=== PATIENT | female | born 2000 | race Caucasian/White ===

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

== ENCOUNTER 2022-11-13 23:43 | Emergency (ER) | payer BC ==
[~2022-11-13] VITALS: Ht 162.5 cm; Wt 61.2 kg
[2022-11-13] MEDS ORDERED: USTE90DI (23:57)
[2022-11-13] MEDS ORDERED: NORE1PAT10 (23:57)
[2022-11-14 00:14] LABS: BILIRUBIN,URINE NEGATIVE (NEGATIVE); CLARITY,URINE SL CLOUDY; COLOR,URINE YELLOW; GLUCOSE, URINE (UA) NEGATIVE (NEGATIVE); KETONES,URINE NEGATIVE (NEGATIVE); LEUKOCYTE ESTERASE ,URINE NEGATIVE (NEGATIVE); NITRITE,URINE NEGATIVE (NEGATIVE); PROTEIN,URINE NEGATIVE (NEGATIVE)
[2022-11-14] MEDS ORDERED: KETOROLAC 15 MG/ML VIAL IVP ONE (00:15)
[2022-11-14 00:20] LABS: BASOPHILS # (AUTO) 0.1 10^3/uL (0.0-0.1); BASOPHILS % (AUTO) 1 % (0-10); EOSINOPHILS # (AUTO) 0.7 10^3/uL (0.0-0.3); EOSINOPHILS % (AUTO) 7 % (0-10); HEMATOCRIT 41 % (35-52); HEMOGLOBIN 13.8 g/dL (11.5-16.0); LYMPHOCYTES # (AUTO) 4.5 10^3/uL (1.0-4.0); LYMPHOCYTES % (AUTO) 50 % (12-44); MEAN CORPUSCULAR HEMOGLOBIN 29 pg (25-34); MEAN CORPUSCULAR HGB CONC 34 g/dL (32-36); MEAN CORPUSCULAR VOLUME 85 fL (80-99); MONOCYTES # (AUTO) 0.6 10^3/uL (0.0-1.0); MONOCYTES % (AUTO) 7 % (0-12); NEUTROPHILS # (AUTO) 3.2 10^3/uL (1.8-7.8); NEUTROPHILS % (AUTO) 35 % (42-75); PLATELET COUNT 398 10^3/uL (130-400); WHITE BLOOD COUNT 9.1 10^3/uL (4.3-11.0)
[2022-11-14 00:21] LABS: AMORPHOUS SEDIMENT,UR FEW AMOR PHOSPHATE /LPF; BACTERIA,URINE TRACE /HPF; WBC,URINE 0-2 /HPF
--- NOTE | 2022-11-14 00:28 | ED Abdominal Pain ---
General Chief Complaint: Abdominal/GI Problems Stated Complaint: LOWER RT ABD PX Nursing Triage Note: C/O CONSTANT RIGHT LOWER ABDOMINAL PAIN VARYING IN INTENSITY X2.5 MONTHS, WORSE X2 DAYS. Source of Information: Patient Exam Limitations: No Limitations History of Present Illness Date Seen by Provider: Nov 14, 2022 Time Seen by Provider: 00:08 Initial Comments 22-year-old female with history of Crohn's disease presents to the emergency department today for right lower abdominal pain. Symptoms off and on for the last 2 months progressively worsening. She saw gynecology thinking maybe related to her ovary. They did not do imaging. I believe this is likely from the ovary, probably likely was musculoskeletal per patient's report. She did stop taking control 2 weeks ago but states they have not had intercourse since that time. No vaginal discharge odor or bleeding. No changes in her bowels but she does have some irregularity here with Crohn's disease. No urinary symptoms. Pain is dull throbbing without radiation in the right lower abdomen, pelvic region. No aggravating or alleviating factors. No associated symptoms. She tried percocet that she had from previous wisdom tooth removal without any relief. Allergies and Home Medications Allergies Coded Allergies: triamcinolone (Verified Allergy, Unknown, 11/13/22) aspirin (Verified Adverse Reaction, Unknown, 11/13/22) ibuprofen (Verified Adverse Reaction, Unknown, 11/13/22) Uncoded Allergies: STEROIDS (Allergy, Severe, HAD PERIOD FOR 2YRS/ELEVATED BS, 08/19/18) Patient Home Medication List Home Medication List Reviewed: Yes Cephalexin (Cephalexin) 500 Mg Tablet, 500 MG PO TID, (Reported) Entered as Reported by: ENID BIGGS on 06/10/21 1216 Cetirizine HCl (Cetirizine HCl) 10 Mg Tablet, 10 MG PO DAILY, (Reported) Entered as Reported by: ROMELIA COLVIN on 08/19/18 0910 Minocycline HCl (Minocycline HCl) 100 Mg Capsule, 100 MG PO BIDPC, (Reported) Entered as Reported by: ROMELIA COLVIN on 08/19/18 0910 Norelgestromin/Ethin.estradiol (Zafemy 150-35 Mcg/Day Patch) 150 Mcg-35 Mcg/24 Hour Patch.tdwk, (Reported) Entered as Reported by: ISIAH SHEPPARD on 11/13/222356 Last Action: New Order Ustekinumab (Stelara) 90 Mg/Ml Syringe, (Reported) Entered as Reported by: ISIAH SHEPPARD on 11/13/222356 Last Action: New Order Review of Systems Review of Systems Constitutional: no symptoms reported EENTM: No Symptoms Reported Respiratory: No Symptoms Reported Cardiovascular: No Symptoms Reported Gastrointestinal: Abdominal Pain Genitourinary: No Symptoms Reported Musculoskeletal: no symptoms reported Skin: no symptoms reported Psychiatric/Neurological: No Symptoms Reported Endocrine: No Symptoms Reported Hematologic/Lymphatic: No Symptoms Reported Past Sdyzlyh-Lbrgya-Clxatc Hx Patient Social History Tobacco Use?: No Substance use?: No Alcohol Use?: No Pt feels they are or have been: No Immunizations Up To Date Tetanus Booster (TDap): Unknown PED Vaccines UTD: Yes First/Initial COVID19 Vaccinat: MAY 2021 Second COVID19 Vaccination Radu: JUN 2021 Third COVID19 Vaccination Date: MAY 2021 COVID19 Vaccine [employer]: fitogram Seasonal Allergies Seasonal Allergies: Yes Past Medical History Surgery/Hospitalization HX: T/A, DENTAL, CHRONS, GERD, ANXIETY, CHRONIC DIARRHEA. Surgeries: Yes Adenoidectomy, Tonsillectomy Respiratory: No Currently Using CPAP: No Currently Using BIPAP: No Cardiac: No Neurological: No Last Menstrual Period: Oct 31, 2022 Reproductive Disorders: No Female Reproductive Disorders: Denies Sexually Transmitted Disease: No HIV/AIDS: No Genitourinary: No Gastrointestinal: No Gastroesophageal Reflux, Crohns Disease, Chronic Diarrhea Musculoskeletal: No Endocrine: No HEENT: No Loss of Vision: Bilateral Hearing Impairment: Denies Cancer: No Psychosocial: No Anxiety Integumentary: No Eczema Blood Disorders: No Adverse Reaction/Blood Tranf: No (N/A) Family Medical History Reviewed Nursing Family Hx No Pertinent Family Hx Physical Exam Vital Signs Vital Signs - First Documented 11/13/22 23:51 Temp 36.3 Pulse 104 Resp 18 B/P (MAP) 138/82 (100) Pulse Ox 98 O2 Delivery Room Air Capillary Refill : Less Than 3 Seconds Height/Weight/BMI Height: 5'3.00" Weight: 135lbs. 0.0oz. 61.422184bk; 23.00 BMI Method:Stated General Appearance: WD/WN, other (crying) HEENT: normal ENT inspection, pharynx normal Neck: non-tender, supple, normal inspection Respiratory: chest non-tender, lungs clear, normal breath sounds, no respirat ory distress, no accessory muscle use Cardiovascular: regular rate, rhythm, no murmur Gastrointestinal: normal bowel sounds, soft, no organomegaly, tenderness (Right lower pelvic region. No rebound or guarding. No mass organomegaly. No skin changes.) Extremities: normal range of motion, non-tender, normal inspection, normal capillary refill Neurologic/Psychiatric: alert, normal mood/affect, oriented x 3 Skin: normal color, warm/dry Progress/Results/Core Measures Results/Orders Lab Results Laboratory Tests Test 11/13/22 23:55 11/14/22 00:09 Range/Units Urine Color YELLOW Urine Clarity SL CLOUDY Urine pH 7.0 5-9 Urine Specific [place] 1.020 1.016-1.022 Urine Protein NEGATIVE NEGATIVE Urine Glucose (UA) NEGATIVE NEGATIVE Urine Ketones NEGATIVE NEGATIVE Urine Nitrite NEGATIVE NEGATIVE Urine Bilirubin NEGATIVE NEGATIVE Urine Urobilinogen 0.2 < = 1.0 MG/DL Urine Leukocyte Esterase NEGATIVE NEGATIVE Urine RBC (Auto) NEGATIVE NEGATIVE Urine RBC NONE /HPF Urine WBC 0-2 /HPF Urine Squamous Epithelial Cells 5-10 /HPF Urine Crystals PRESENT H /LPF Urine Amorphous Sediment FEW STEFFANY PHOSPHATE H /LPF Urine Bacteria TRACE /HPF Urine Casts NONE /LPF Urine Mucus NEGATIVE /LPF Urine Culture Indicated NO White Blood Count 9.1 4.3-11.0 10^3/uL Red Blood Count 4.81 3.80-5.11 10^6/uL Hemoglobin 13.8 11.5-16.0 g/dL Hematocrit 41 35-52 % Mean Corpuscular Volume 85 80-99 fL Mean Corpuscular Hemoglobin 29 25-34 pg Mean Corpuscular Hemoglobin Concent 34 32-36 g/dL Red Cell Distribution Width 12.2 10.0-14.5 % Platelet Count 398 130-400 10^3/uL Mean Platelet Volume 10.0 9.0-12.2 fL Immature Granulocyte % (Auto) 0 % Neutrophils (%) (Auto) 35 L 42-75 % Lymphocytes (%) (Auto) 50 H 12-44 % Monocytes (%) (Auto) 7 0-12 % Eosinophils (%) (Auto) 7 0-10 % Basophils (%) (Auto) 1 0-10 % Neutrophils # (Auto) 3.2 1.8-7.8 10^3/uL Lymphocytes # (Auto) 4.5 H 1.0-4.0 10^3/uL Monocytes # (Auto) 0.6 0.0-1.0 10^3/uL Eosinophils # (Auto) 0.7 H 0.0-0.3 10^3/uL Basophils # (Auto) 0.1 0.0-0.1 10^3/uL Immature Granulocyte # (Auto) 0.0 0.0-0.1 10^3/uL Sodium Level 140 135-145 MMOL/L Potassium Level 3.6 3.6-5.0 MMOL/L Chloride Level 106 98-107 MMOL/L Carbon Dioxide Level 23 21-32 MMOL/L Anion Gap 11 5-14 MMOL/L Blood Urea Nitrogen 12 7-18 MG/DL Creatinine 0.76 0.60-1.30 MG/DL Estimat Glomerular Filtration Rate 115 BUN/Creatinine Ratio 16 Glucose Level 84 70-105 MG/DL Calcium Level 9.5 8.5-10.1 MG/DL Corrected Calcium 9.6 8.5-10.1 MG/DL Total Bilirubin 0.2 0.1-1.0 MG/DL Aspartate Amino Transf (AST/SGOT) 22 5-34 U/L Alanine Aminotransferase (ALT/SGPT) 31 0-55 U/L Alkaline Phosphatase 77 40-136 U/L Total Protein 7.3 6.4-8.2 GM/DL Albumin 3.9 3.2-4.5 GM/DL Serum Test, Qualitative NEGATIVE NEGATIVE My Orders Orders - ZACKERY CH DO Hcg,Qualitative Serum (11/14/22 00:05) Comprehensive Metabolic Panel (11/14/22 00:05) Cbc With Automated Diff (11/14/22 00:05) Ua Culture If Indicated (11/14/22 00:05) Ketorolac Injection (Toradol Injection) (11/14/22 00:15) Ct Abd/Pelvis Wo(Kidney Stone) (11/14/22 00:06) Medications Given in ED Current Medications Medications Dose Ordered Sig/Carmenza Route Start Time Stop Time Status Last Admin Dose Admin Ketorolac Tromethamine 15 mg ONCE ONCE IVP 11/14/22 00:15 11/14/22 00:16 DC 11/14/22 00:13 15 MG Vital Signs/I&O 11/13/22 23:51 Temp 36.3 Pulse 104 Resp 18 B/P (MAP) 138/82 (100) Pulse Ox 98 O2 Delivery Room Air Blood Pressure Mean: 100 Departure Communication (Admissions) Patient is hemodynamically stable. Initial differential diagnosis includes appendicitis, urinary tract infection, nephro/ureterolithiasis, ovarian cyst, torsion. Highly doubt torsion based on her exam and the duration of the symptoms more than 2 months now. Urine is noninfected. CT scan is negative for any evidence of acute appendicitis. We are awaiting the official read of the CT scan the patient's came out and stated she was tired of waiting and would like to leave. Unfortunately there was a delay in the read has been using a virtual off-site radiology service overnight and has had delays recently. Advised that while I did not see anything obvious on the CT scan I am not a radiologist and could not guarantee that I was not missing something. He stated understanding and still request to leave. Her pain is essentially resolved with Toradol. Normal white blood cell count as well and given the duration this would be unlikely. Unclear what the source is but it does not appear to be from emergent medical condition at this time. Recommend follow-up with primary doctor and given strict return precautions. Impression Primary Impression: Right lower quadrant abdominal pain Disposition: 01 HOME, SELF-CARE Condition: Stable Departure-Patient Inst. Referrals: MIAH KAY DO (PCP/Family) Primary Care Physician Patient Instructions: Abdominal Pain, Adult ED Add. Discharge Instructions: You have opted not to wait for the official CT scan read, including the limited view of your pelvic organs. While i dont see anything grossly abnormal, i am not a radiologist. No obvious emergent medical condition is identified for your symptoms today. Continue to use home medications as previously recommended. Return to the emergency department for any severe concerns. All discharge instructions reviewed with patient and/or family. Voiced understanding. ZACKERY CH DO Nov 14, 2022 00:28
[2022-11-14 00:30] LABS: ALBUMIN 3.9 GM/DL (3.2-4.5)
[2022-11-14 00:31] LABS: POTASSIUM 3.6 MMOL/L (3.6-5.0)
[2022-11-14 00:32] LABS: CALCIUM 9.5 MG/DL (8.5-10.1)
[2022-11-14 00:33] LABS: TOTAL PROTEIN 7.3 GM/DL (6.4-8.2)
[2022-11-14 00:35] LABS: BILIRUBIN,TOTAL 0.2 MG/DL (0.1-1.0)
[2022-11-14 00:37] LABS: CREATININE SERUM 0.76 MG/DL (0.60-1.30)
[2022-11-14 02:39] VITALS: BP 132/86
--- NOTE | 2022-11-14 07:22 | Diagnostic Imaging Report ---
PROCEDURE: CT urinary tract, rule out kidney stone. TECHNIQUE: Multiple contiguous axial images were obtained through the abdomen and pelvis without the use of intravenous contrast. Auto Exposure Controls were utilized during the CT exam to meet ALARA standards for radiation dose reduction. INDICATION: Right-sided abdominal pain. COMPARISON: 08/23/2021. FINDINGS: The heart is unremarkable. The lung bases are clear. The liver, spleen, pancreas, adrenal glands, and kidneys have a normal noncontrast CT appearance. There is no pathologically enlarged mesenteric or retroperitoneal adenopathy. The bowel loops are nondilated. The appendix is visualized in the right lower quadrant and has a normal appearance. There is no free fluid or free air. No acute osseous abnormalities. Ureters and bladder are normal. There is no free air, loculated collection, or adenopathy in the pelvis. IMPRESSION: 1. No acute abnormalities in the abdomen and pelvis. Agree with overnight report. Dictated by: Dictated on workstation # [id number]
== END 2022-11-14 02:41 | disposition home or self-care (01) ==
LOC: EDUNIT# 23:43 → ER 23:47
DX: R10.31 Right lower quadrant pain (principal); Z87.19 Personal history of other diseases of the digestive system; Z88.6 Allergy status to analgesic agent
CPT/HCPCS: 36415; 74176; 80053; 81000; 84703; 85025; 96374

== ENCOUNTER → 2022-11-18 | Outpatient (CLI) | payer BC ==
[~2022-11-18] MED LIST changes: +NORE1PAT10; +USTE90DI
--- NOTE | 2022-11-18 14:26 | Diagnostic Imaging Report ---
PROCEDURE: Pelvic comp/transvaginal sonogram. TECHNIQUE: Complete transabdominal and transvaginal pelvic ultrasound was performed. In addition, limited pelvic Doppler was performed. INDICATION: Pelvic pain. FINDINGS: The uterus is retroverted measuring 7.1 x 3.6 x 5.1 cm. The endometrium is 5 mm in thickness. There are areas of myometrial heterogeneity on both the right and left aspect of the uterus, each area measuring 2-3 cm in size. Possible fibroids cannot be entirely excluded. The right ovary measures 3.0 x 1.6 x 1.9 cm and the left ovary measures 3.3 x 1.8 x 3.3 cm. The left ovary does contain a dominant follicle or cyst measuring approximately 22 mm x 20 mm. There is normal vascularity to both ovaries. No free fluid is detected. IMPRESSION: 1. There is some myometrial heterogeneity, uterine fibroids cannot be entirely excluded. 2. There is a 22 mm dominant follicle of the left ovary. Dictated by: Dictated on workstation # [id number]
== END ==
LOC: RAD 12:17
PROVIDERS: ATTEND Nurse Practitioner Women's Health
DX: N83.02 Follicular cyst of left ovary (principal); D25.9 Leiomyoma of uterus, unspecified
CPT/HCPCS: 76830; 76856

== ENCOUNTER → 2023-03-11 | Outpatient (CLI) | payer BC ==
--- NOTE | 2023-03-11 15:54 | Diagnostic Imaging Report ---
US SOFT TISSUE HEAD NECK [id number] INDICATION: Enlarged cervical lymph nodes COMPARISON: None available. TECHNIQUE: Multiprojectional scintigraphic imaging of the neck was performed with grayscale and color Doppler imaging. FINDINGS: Bilateral cervical lymph nodes are normal in size and morphology. All the lymph nodes are less than 1 cm short axis and have maximal long-dimensions of up to 1.2 cm. No cortical thickening. IMPRESSION: No enlarged cervical lymph nodes on either side. Multiple normal-appearing lymph nodes are present. Dictated by: Dictated on workstation # [id number]
== END ==
LOC: RAD 09:58
DX: I89.0 Lymphedema, not elsewhere classified (principal)
CPT/HCPCS: 76536

== ENCOUNTER 2023-05-29 11:54 | Emergency (ER) | payer BC ==
[~2023-05-29] VITALS: Ht 160 cm; Wt 65.8 kg
[2023-05-29] MEDS ORDERED: ONDANSETRON INJECTION 4 MG/2 ML (SDV) IVP ONE (12:15)
[2023-05-29] MEDS ORDERED: NS IV 1000 ML 1,000 ML IV SCH ×2 (12:15→15:00)
--- NOTE | 2023-05-29 12:17 | ED Cough/URI ---
General Chief Complaint: COVID19 Suspect/Confirmed Stated Complaint: SORE THROAT | IMMUNO COMPROMISED Nursing Triage Note: PT AMB TO ED BY POV WITH C/O SORE THROAT, N/V, CONGESTION. PT REPORTS CONGESTION AND BODY ACHES BEGAN A FEW DAYS AGO, SORE THROAT BEGINNING LAST YESTERDAY. PT REPORTS SHE HAS NOT BEEN ABLE TO KEEP ANYTHING DOWN OVER THE LAST FEW DAYS. Source: patient Exam Limitations: no limitations History of Present Illness Date Seen by Provider: May 29, 2023 Time Seen by Provider: 11:57 Initial Comments 22-year-old female presents to the ER with reports of vomiting for the last 18 to 24 hours, body aches and chills, sore throat, congestion, cough with green- colored phlegm. Patient has Crohn's disease, she is currently on Stelara and is immunocompromised. She denies fevers, abdominal pain, diarrhea, dysuria. Last bowel movement was yesterday and normal. Last menstrual cycle was last week. She states that last week she had walking pneumonia and was treated with doxycycline. States she felt better for approximately 4 to 5 days and then developed the symptoms. Allergies and Home Medications Allergies Coded Allergies: triamcinolone (Verified Allergy, Unknown, 11/13/22) aspirin (Verified Adverse Reaction, Unknown, 11/13/22) ibuprofen (Verified Adverse Reaction, Unknown, 11/13/22) Uncoded Allergies: STEROIDS (Allergy, Severe, HAD PERIOD FOR 2YRS/ELEVATED BS, 08/19/18) Patient Home Medication List Home Medication List Reviewed: Yes Cefdinir (Cefdinir) 300 Mg Capsule, 300 MG PO BID Prescribed by: Rissa Nam on 05/29/23 1521 Cephalexin (Cephalexin) 500 Mg Tablet, 500 MG PO TID, (Reported) Entered as Reported by: ENID BIGGS on 06/10/21 1216 Cetirizine HCl (Cetirizine HCl) 10 Mg Tablet, 10 MG PO DAILY, (Reported) Entered as Reported by: ROMELIA COLVIN on 08/19/18 0910 Minocycline HCl (Minocycline HCl) 100 Mg Capsule, 100 MG PO BIDPC, (Reported) Entered as Reported by: ROMELIA COLVIN on 08/19/18 0910 Norelgestromin/Ethin.estradiol (Zafemy 150-35 Mcg/Day Patch) 150 Mcg-35 Mcg/24 Hour Patch.tdwk, (Reported) Entered as Reported by: ISIAH SHEPPARD on 11/13/222356 Ondansetron (Ondansetron Odt) 4 Mg Tab.rapdis, 4 MG SL Q4H PRN for NAUSEA/VOMITING Prescribed by: Rissa Nam on 05/29/23 1521 Ustekinumab (Stelara) 90 Mg/Ml Syringe, (Reported) Entered as Reported by: ISIAH SHEPPARD on 11/13/222356 Review of Systems Review of Systems Constitutional: see HPI Past Tjptlej-Puuhqh-Iguntq Hx Patient Social History Tobacco Use?: No Use of E-Cig and/or Vaping dev: No Substance use?: No Alcohol Use?: No Pt feels they are or have been: No Immunizations Up To Date Tetanus Booster (TDap): Unknown PED Vaccines UTD: Yes First/Initial COVID19 Vaccinat: MAY 2021 Second COVID19 Vaccination Radu: JUN 2021 Third COVID19 Vaccination Date: MAY 2021 Seasonal Allergies Seasonal Allergies: Yes Past Medical History Surgery/Hospitalization HX: T/A, DENTAL, CHRONS, GERD, ANXIETY, CHRONIC DIARRHEA. Surgeries: Yes Adenoidectomy, Tonsillectomy Respiratory: No Currently Using CPAP: No Currently Using BIPAP: No Cardiac: No Neurological: No Reproductive Disorders: No Female Reproductive Disorders: Denies Sexually Transmitted Disease: No HIV/AIDS: No Genitourinary: No Gastrointestinal: No Gastroesophageal Reflux, Crohns Disease, Chronic Diarrhea Musculoskeletal: No Endocrine: No HEENT: No Loss of Vision: Bilateral Hearing Impairment: Denies Cancer: No Psychosocial: No Anxiety Integumentary: No Eczema Blood Disorders: No Adverse Reaction/Blood Tranf: No (N/A) Family Medical History No Pertinent Family Hx Physical Exam Vital Signs - First Documented 05/29/23 12:00 Temp 36.5 Pulse 115 Resp 18 B/P (MAP) 122/86 (98) Pulse Ox 98 O2 Delivery Room Air Capillary Refill : Less Than 3 Seconds Height: 5'3.00" Weight: 135lbs. 0.0oz. 61.652135jd; 25.00 BMI Method:Stated General Appearance: WD/WN, mild distress Neck: supple, normal inspection Respiratory: lungs clear, normal breath sounds, no respiratory distress, no accessory muscle use Cardiovascular: tachycardia Extremities: normal range of motion, normal inspection Neurologic/Psychiatric: alert, normal mood/affect Skin: normal color, warm/dry Focused Exam Lactate Level 05/29/23 12:24: Lactic Acid Level 0.97 Lactic Acid Level Laboratory Tests Test 05/29/23 12:24 Lactic Acid Level 0.97 MMOL/L (0.50-2.00) Progress/Results/Core Measures Suspected Sepsis SIRS Temperature: Pulse: 115 Respiratory Rate: 18 Laboratory Tests 05/29/23 12:24: White Blood Count 19.4H Blood Pressure 122 /86 Mean: 98 05/29/23 12:24: Lactic Acid Level 0.97 Laboratory Tests 05/29/23 12:24: Creatinine 0.83, Platelet Count 408H, Total Bilirubin 0.6 Results/Orders Lab Results Laboratory Tests Test 05/29/23 12:24 05/29/23 13:05 05/29/23 13:50 Range/Units White Blood Count 19.4 H 4.3-11.0 10^3/uL Red Blood Count 4.67 3.80-5.11 10^6/uL Hemoglobin 13.3 11.5-16.0 g/dL Hematocrit 39 35-52 % Mean Corpuscular Volume 84 80-99 fL Mean Corpuscular Hemoglobin 29 25-34 pg Mean Corpuscular Hemoglobin Concent 34 32-36 g/dL Red Cell Distribution Width 12.4 10.0-14.5 % Platelet Count 408 H 130-400 10^3/uL Mean Platelet Volume 9.9 9.0-12.2 fL Immature Granulocyte % (Auto) 0 % Neutrophils (%) (Auto) 85 H 42-75 % Lymphocytes (%) (Auto) 8 L 12-44 % Monocytes (%) (Auto) 4 0-12 % Eosinophils (%) (Auto) 2 0-10 % Basophils (%) (Auto) 0 0-10 % Neutrophils # (Auto) 16.6 H 1.8-7.8 10^3/uL Lymphocytes # (Auto) 1.6 1.0-4.0 10^3/uL Monocytes # (Auto) 0.7 0.0-1.0 10^3/uL Eosinophils # (Auto) 0.4 H 0.0-0.3 10^3/uL Basophils # (Auto) 0.1 0.0-0.1 10^3/uL Immature Granulocyte # (Auto) 0.1 0.0-0.1 10^3/uL Neutrophils % (Manual) 80 % Lymphocytes % (Manual) 13 % Monocytes % (Manual) 4 % Eosinophils % (Manual) 3 % Blood Morphology Comment NORMAL Sodium Level 137 135-145 MMOL/L Potassium Level 3.7 3.6-5.0 MMOL/L Chloride Level 103 98-107 MMOL/L Carbon Dioxide Level 23 21-32 MMOL/L Anion Gap 11 5-14 MMOL/L Blood Urea Nitrogen 10 7-18 MG/DL Creatinine 0.83 0.60-1.30 MG/DL Estimat Glomerular Filtration Rate 103 BUN/Creatinine Ratio 12 Glucose Level 85 70-105 MG/DL Lactic Acid Level 0.97 0.50-2.00 MMOL/L Calcium Level 9.4 8.5-10.1 MG/DL Corrected Calcium 9.6 8.5-10.1 MG/DL Total Bilirubin 0.6 0.1-1.0 MG/DL Aspartate Amino Transf (AST/SGOT) 15 5-34 U/L Alanine Aminotransferase (ALT/SGPT) 14 0-55 U/L Alkaline Phosphatase 76 40-136 U/L Total Protein 7.6 6.4-8.2 GM/DL Albumin 3.8 3.2-4.5 GM/DL Influenza Type A (RT-PCR) Not Detected Not Detecte Influenza Type B (RT-PCR) Not Detected Not Detecte SARS-CoV-2 RNA (RT-PCR) Not Detected Not Detecte Group A Streptococcus Screen NEGATIVE NEGATIVE Urine Color YELLOW Urine Clarity CLOUDY H Urine pH 5.5 5-9 Urine Specific [place] >=1.030 1.016-1.022 Urine Protein 2+ H NEGATIVE Urine Glucose (UA) NEGATIVE NEGATIVE Urine Ketones 3+ H NEGATIVE Urine Nitrite NEGATIVE NEGATIVE Urine Bilirubin 2+ H NEGATIVE Urine Urobilinogen 1.0 < = 1.0 MG/DL Urine Leukocyte Esterase TRACE H NEGATIVE Urine RBC (Auto) NEGATIVE NEGATIVE Urine RBC 0-2 /HPF Urine WBC 5-10 H /HPF Urine Squamous Epithelial Cells >50 H /HPF Urine Crystals PRESENT H /LPF Urine Amorphous Sediment RARE STEFFANY URATES H /LPF Urine Bacteria FEW H /HPF Urine Casts NONE /LPF Urine Mucus LARGE H /LPF Urine Culture Indicated YES My Orders Orders - RISSA FRANKLIN APRN Comprehensive Metabolic Panel (05/29/23 12:08) Ua Culture If Indicated (05/29/23 12:08) Urine Bedside (05/29/23 12:08) Ed Iv/Invasive Line Start (05/29/23 12:08) Cbc With Automated Diff (05/29/23 12:08) Covid 19 Inhouse Test (05/29/23 12:08) Influenza A And B By Pcr (05/29/23 12:08) Rapid Strep A Screen (05/29/23 12:08) Ns Iv 1000 Ml (Ns Iv 1000 Ml) (05/29/23 12:15) Ondansetron Injection (Ondansetron Inj (05/29/23 12:15) Chest 1 View, Ap/Pa Only (05/29/23 12:11) Lactic Acid Analyzer (05/29/23 12:11) Ketorolac Injection (Ketorolac Injection (05/29/23 12:30) Manual Differential (05/29/23 12:24) Throat Culture Strep A Confirm (05/29/23 13:05) Urine Culture (05/29/23 13:50) Ns Iv 1000 Ml (Ns Iv 1000 Ml) (05/29/23 15:00) Medications Given in ED Current Medications Medications Dose Ordered Sig/Carmenza Route Start Time Stop Time Status Last Admin Dose Admin Ketorolac Tromethamine 15 mg ONCE ONCE IVP 05/29/23 12:30 05/29/23 12:31 DC 05/29/23 12:25 15 MG Ondansetron HCl 4 mg ONCE ONCE IVP 05/29/23 12:15 05/29/23 12:16 DC 05/29/23 12:25 4 MG Vital Signs/I&O 05/29/23 05/29/23 12:00 15:52 Temp 36.5 36.5 Pulse 115 100 Resp 18 18 B/P (MAP) 122/86 (98) 117/64 Pulse Ox 98 96 O2 Delivery Room Air Room Air Capillary Refill : Less Than 3 Seconds Blood Pressure Mean: 98 Progress Note : Progress Note Patient seen and evaluated, sitting in bed, mild distress. Based on exam and symptoms, work-up initiated including CBC, CMP, lactic acid, UA, urine , COVID, flu, strep, chest x-ray. IV fluids, Zofran ordered. 1446 Labs and x-ray reviewed. CBC shows elevated WBC 19.4, elevated neutrophil percentage 85. CMP grossly normal. Lactic acid normal. Urinalysis shows 3+ ketones, 2+ bilirubin, 5-10 WBCs, greater than 50 squamous epithelial cells, few bacteria. Specimen is contaminated. COVID, flu, strep negative. Chest x-ray shows no acute cardiopulmonary process. Second liter of IV fluids ordered. Results discussed with patient. Symptoms are likely from a viral upper respiratory tract infection, but will treat with cefdinir due to elevated white count and patient being immunocompromised. Elevated white count could also be from vomiting. Results discussed with patient. Will discharge after IV fluids. Discharge instructions and return precautions provided. Diagnostic Imaging Diagonstic Imaging: Xray Plain Films/CT/US/NM/MRI: chest Comments [facility] [place], [place] NAME: ZE PETERSON [facility] REC#: [id number] PT STATUS: REG ER : 2000 PHYSICIAN: RISSA FRANKLIN APRN ADMIT DATE: 05/29/23/ER Signed Date of Exam:05/29/23 CHEST 1 VIEW, AP/PA ONLY EXAMINATION: Chest, one view. HISTORY: Cough and congestion, recent pneumonia. COMPARISON: None available. FINDINGS: The lungs are clear without edema or pneumonia. No pleural effusion or pneumothorax. Heart size is normal. IMPRESSION: 1. Clear lungs. Dictated by: Dictated on workstation # [id number] Dict: 05/29/23 1327 Trans: 05/29/23 1331 [id number] Interpreted by: VELMA MAHER MD Electronically signed by: VELMA MAHER MD 05/29/23 1331 Departure Impression Primary Impression: Upper respiratory infection Additional Impression: Vomiting Disposition: 01 HOME, SELF-CARE Condition: Stable Departure-Patient Inst. Decision time for Depature: 15:45 Referrals: MIAH KAY DO (PCP/Family) Primary Care Physician Patient Instructions: Upper Respiratory Infection ED Add. Discharge Instructions: Complete full course of antibiotic as directed. Take Zofran as needed for nausea vomiting. You may take 1000 mg of Tylenol every 8 hours as needed for pain. Follow-up with your primary care provider if you are not improving. Return for recurrent vomiting, or any other new, concerning, or worsening symptoms. All discharge instructions reviewed with patient and/or family. Voiced understanding. Scripts Ondansetron (Ondansetron Odt) 4 Mg Tab.rapdis 4 MG SL Q4H PRN for NAUSEA/VOMITING, #20 TAB Prov: RISSA FRANKLIN APRN 05/29/23 Cefdinir (Cefdinir) 300 Mg Capsule 300 MG PO BID for 7 Days, #14 CAP Prov: RISSA FRANKLIN APRN 05/29/23 RISSA FRANKLIN APRN May 29, 2023 12:17
[2023-05-29] MEDS ORDERED: KETOROLAC INJ 15 MG/ML VIAL IVP ONE (12:30)
[2023-05-29 12:34] LABS: BASOPHILS # (AUTO) 0.1 10^3/uL (0.0-0.1); BASOPHILS % (AUTO) 0 % (0-10); EOSINOPHILS # (AUTO) 0.4 10^3/uL (0.0-0.3); EOSINOPHILS % (AUTO) 2 % (0-10); HEMATOCRIT 39 % (35-52); HEMOGLOBIN 13.3 g/dL (11.5-16.0); LYMPHOCYTES # (AUTO) 1.6 10^3/uL (1.0-4.0); LYMPHOCYTES % (AUTO) 8 % (12-44); MEAN CORPUSCULAR HEMOGLOBIN 29 pg (25-34); MEAN CORPUSCULAR HGB CONC 34 g/dL (32-36); MEAN CORPUSCULAR VOLUME 84 fL (80-99); MEAN PLATELET VOLUME 9.9 fL (9.0-12.2); MONOCYTES # (AUTO) 0.7 10^3/uL (0.0-1.0); MONOCYTES % (AUTO) 4 % (0-12); NEUTROPHILS # (AUTO) 16.6 10^3/uL (1.8-7.8); NEUTROPHILS % (AUTO) 85 % (42-75); PLATELET COUNT 408 10^3/uL (130-400); WHITE BLOOD COUNT 19.4 10^3/uL (4.3-11.0)
[2023-05-29 12:44] LABS: ALBUMIN 3.8 GM/DL (3.2-4.5); POTASSIUM 3.7 MMOL/L (3.6-5.0)
[2023-05-29 12:45] LABS: CALCIUM 9.4 MG/DL (8.5-10.1)
[2023-05-29 12:46] LABS: TOTAL PROTEIN 7.6 GM/DL (6.4-8.2)
[2023-05-29 12:48] LABS: BILIRUBIN,TOTAL 0.6 MG/DL (0.1-1.0)
[2023-05-29 12:50] LABS: CREATININE SERUM 0.83 MG/DL (0.60-1.30)
[2023-05-29 12:54] LABS: EOSINOPHILS % (MANUAL) 3 %; LYMPHOCYTES % (MANUAL) 13 %; MONOCYTES % (MANUAL) 4 %; NEUTROPHILS % (MANUAL) 80 %; RBC MORPH NORMAL
--- NOTE | 2023-05-29 13:31 | Diagnostic Imaging Report ---
EXAMINATION: Chest, one view. HISTORY: Cough and congestion, recent pneumonia. COMPARISON: None available. FINDINGS: The lungs are clear without edema or pneumonia. No pleural effusion or pneumothorax. Heart size is normal. IMPRESSION: 1. Clear lungs. Dictated by: Dictated on workstation # [id number]
[2023-05-29 14:23] LABS: BILIRUBIN,URINE 2+ (NEGATIVE); CLARITY,URINE CLOUDY; COLOR,URINE YELLOW; GLUCOSE, URINE (UA) NEGATIVE (NEGATIVE); KETONES,URINE 3+ (NEGATIVE); LEUKOCYTE ESTERASE ,URINE TRACE (NEGATIVE); NITRITE,URINE NEGATIVE (NEGATIVE); PH,URINE 5.5 (5-9); PROTEIN,URINE 2+ (NEGATIVE); RBC,URINE 0-2 /HPF
[2023-05-29 14:24] LABS: AMORPHOUS SEDIMENT,UR RARE AMOR URATES /LPF; BACTERIA,URINE FEW /HPF; SQUAMOUS EPITHELIAL CELL,UR >50 /HPF
[2023-05-29] MEDS ORDERED: CEFD300C3 PO (15:21)
[2023-05-29] MEDS ORDERED: ONDA4TAB11 SL (15:21)
[2023-05-29 15:52] VITALS: BP 117/64
== END 2023-05-29 15:54 | disposition home or self-care (01) ==
LOC: EDUNIT# 11:54 → ER 11:56
DX: J06.9 Acute upper respiratory infection, unspecified (principal); R11.10 Vomiting, unspecified; Z20.822 Contact with and (suspected) exposure to COVID-19
CPT/HCPCS: 36415; 71045; 80053; 81000; 83605; 84703; 85007; 85027; 87088; 87430; 87636